=== PATIENT | male | born 1970 | race Caucasian/White ===

== ENCOUNTER 2019-12-02 10:09 | Outpatient (REF) | payer MEDICARE, MEDICAID, SELFPAY ==
[2019-12-02 14:25] LABS: Erythrocyte Sedimentation Rate 8 MM/HR (0-15)
[2019-12-02 14:37] LABS: C Reactive Protein 0.34 mg/dL (< or = 0.50); Uric Acid 6.9 mg/dL (3.4-7.0)
== END 2019-12-02 10:10 | disposition home or self-care (01) ==
LOC: HO.WFDLDS 10:09
PROVIDERS: Visit Provider Hospitalist
DX: M79.605 Pain in left leg (principal); M79.604 Pain in right leg
CPT/HCPCS: 36415; 84550; 85652; 86140

== ENCOUNTER 2020-02-08 15:06 | Outpatient (REF) | payer MEDICARE, MEDICAID, SELFPAY ==
[2020-02-08 16:33] LABS: Estimated Average Glucose 108 mg/dL; Hemoglobin A1c % 5.4 %
[2020-02-08 16:43] LABS: Anion Gap 19 (12-20); Blood Urea Nitrogen 21 mg/dL (9-16); Calcium 9.1 mg/dL (8.4-10.2); Carbon Dioxide 22 mmol/L (22-29); Chloride 105 mmol/L (96-108); Cholesterol 158 mg/dL; Estimated Glomerular Filt Rate 53; Glucose Fasting 84 mg/dL (60-99); HDL Cholesterol 19 mg/dL; LDL Cholesterol Calculated 74 mg/dl; Potassium 4.6 mmol/l (3.3-5.1); Sodium 141 mmol/L (135-145); Triglycerides 329 mg/dL
[2020-02-09 08:38] LABS: LDL Cholesterol Direct 103 mg/dL (<100)
== END 2020-02-08 15:07 | disposition home or self-care (01) ==
LOC: HO.HMGCLDS 15:06
PROVIDERS: PCP Internal Medicine; Visit Provider Nurse Practitioner Gerontology
DX: E11.42 Type 2 diabetes mellitus with diabetic polyneuropathy (principal); E55.9 Vitamin D deficiency, unspecified
CPT/HCPCS: 80048; 80061; 82306; 83036; 83721

== ENCOUNTER → 2020-02-11 10:26 | Outpatient (BNVA) | payer MEDICARE, MEDICAID, SELFPAY | PROVIDERS: PCP Internal Medicine; Visit Provider Internal Medicine Gastroenterology | DX: Z13.89 Encounter for screening for other disorder (principal) | CPT/HCPCS: Q3014 ==

== ENCOUNTER → 2020-03-04 12:56 | Outpatient (BNVA) | payer MEDICARE, MEDICAID, SELFPAY | PROVIDERS: PCP Internal Medicine; Visit Provider Nurse Practitioner Gerontology | DX: E78.1 Pure hyperglyceridemia (principal); E66.09 Other obesity due to excess calories; Z68.31 Body mass index [BMI] 31.0-31.9, adult; E55.9 Vitamin D deficiency, unspecified | CPT/HCPCS: 82947; 99212 ==

== ENCOUNTER 2020-03-17 21:39 | Emergency (ER) | payer MEDICARE, MEDICAID, SELFPAY ==
[2020-03-17] MEDS: 0.9 % Sodium Chloride 1,000 ML 999 ML IVCONT ×2 (21:50→23:49)
[2020-03-17 22:02] VITALS: PULSE 98; RESP 18; TEMP 36.8; O2SAT 96; BMI 34.9
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
--- NOTE | 2020-03-17 22:17 | ECG_ITS ---
Test Reason : MEDICAL Blood Pressure : / mmHG Vent. Rate : 095 BPM Atrial Rate : 095 BPM P-R Int : 164 ms QRS Dur : 088 ms QT Int : 362 ms P-R-T Axes : 060 075 039 degrees QTc Int : 454 ms Normal sinus rhythm Normal ECG When compared with ECG of 28-JUL-2019 17:14, No significant change was found Referred By: Howie Canas Electronically Signed By:DANNA RECIO
--- NOTE | 2020-03-17 22:18 | PC.NURSE ---
PT TO ROOM, MD AT BEDSIDE. BS 105, MD AWARE. PT ARRIVES ALERT, RESPIRATIONS EASY, N/L. SKIN W/D.
[2020-03-17 22:20] LABS: Glucose, Whole Blood 105 mg/dL (60-115)
--- NOTE | 2020-03-17 22:44 | PC.NURSE ---
HL PLACED TO LAC, LABS DRAWN TO LAB. PT AWAITING FOR EKG. PT REMAIN ALERT AND AWAKE, RESPIRATIONS EASY, N/L. SKIN W/D.
[2020-03-17 23:02] LABS: Anion Gap 14 (12-20); Blood Urea Nitrogen 19 mg/dL (9-16); Calcium 8.7 mg/dL (8.4-10.2); Carbon Dioxide 22 mmol/L (22-29); Chloride 104 mmol/L (96-108); Creatinine Clr Calc Pharmacy 126.3; Estimated Glomerular Filt Rate > 60; Glucose Random 102 mg/dL (60-115); Potassium 4.4 mmol/l (3.3-5.1); Sodium 136 mmol/L (135-145)
== END 2020-03-18 00:03 | disposition home or self-care (01) ==
PROVIDERS: Emergency Provider Emergency Medicine; PCP Internal Medicine
DX: E11.65 Type 2 diabetes mellitus with hyperglycemia (principal); R42 Dizziness and giddiness; E86.0 Dehydration; F17.210 Nicotine dependence, cigarettes, uncomplicated; Z71.6 Tobacco abuse counseling; Z79.899 Other long term (current) drug therapy; Z79.84 Long term (current) use of oral hypoglycemic drugs
CPT/HCPCS: 36415; 80048; 82947; 93005; 96360; 99283; 99284

== ENCOUNTER → 2020-09-02 13:48 | Outpatient (BNVA) | payer MEDICARE, MEDICAID, SELFPAY | PROVIDERS: PCP Family Medicine; Visit Provider Nurse Practitioner Gerontology | DX: E11.42 Type 2 diabetes mellitus with diabetic polyneuropathy (principal); E78.1 Pure hyperglyceridemia; E55.9 Vitamin D deficiency, unspecified; E66.09 Other obesity due to excess calories; Z79.4 Long term (current) use of insulin; Z68.31 Body mass index [BMI] 31.0-31.9, adult | CPT/HCPCS: Q3014 ==

== ENCOUNTER 2021-01-23 12:50 | Outpatient (REF) | payer MEDICARE, MEDICAID, SELFPAY ==
--- NOTE | ~2021-01-23 | XR_ITS ---
EXAMINATION: XR CHEST CLINICAL INFORMATION: Cough COMPARISON: Previous chest x-ray most recent May 2019 TECHNIQUE: 2 views of the chest were obtained. FINDINGS: No significant abnormality is noted involving the heart, lungs, mediastinum, bony thorax or soft tissues. XR/XR chest 2V IMPRESSION: Unremarkable examination.
[2021-01-23 14:19] LABS: Alanine Aminotransferase 22 U/L (0-40); Albumin Level 4.2 g/dL (3.5-5.0); Alkaline Phosphatase 57 U/L (39-117); Anion Gap 14 (12-20); Aspartate Amino Transferase 17 U/L (5-37); Bilirubin Total 0.2 mg/dL (0.0-1.0); Blood Urea Nitrogen 20 mg/dL (9-16); Calcium 8.9 mg/dL (8.4-10.2); Carbon Dioxide 19 mmol/L (22-29); Chloride 110 mmol/L (96-108); Cholesterol 181 mg/dL; Estimated Glomerular Filt Rate > 60; Glucose Fasting 104 mg/dL (60-99); HDL Cholesterol 20 mg/dL; Potassium 4.4 mmol/L (3.3-5.1); Sodium 139 mmol/L (135-145); Triglycerides 614 mg/dL
[2021-01-23 14:36] LABS: Prostate Specific Antigen Scr 0.49 ng/mL (<0.05-4.0)
[2021-01-23 14:49] LABS: Creatinine Urine 121.72 mg/dL; Microalbumin Urine < 5.0 mg/L
== END 2021-01-23 12:51 | disposition home or self-care (01) ==
LOC: HO.HMGCLDS 12:50
PROVIDERS: PCP Family Medicine; Visit Provider Family Medicine
DX: Z00.00 Encounter for general adult medical examination without abnormal findings (principal); Z12.5 Encounter for screening for malignant neoplasm of prostate; E11.42 Type 2 diabetes mellitus with diabetic polyneuropathy; R05.9 Cough, unspecified; I10 Essential (primary) hypertension; Z79.4 Long term (current) use of insulin
CPT/HCPCS: 36415; 71046; 80053; 80061; 82043; 84153; 84443

== ENCOUNTER 2021-02-22 11:28 | Emergency (ER) | payer MEDICARE, MEDICAID, SELFPAY ==
--- NOTE | ~2021-02-22 | CT_ITS ---
EXAMINATION: CT HEAD WITHOUT CONTRAST CLINICAL INFORMATION: Headache for 2 days. COMPARISON: None TECHNIQUE: Contiguous axial imaging was performed from the skull base to vertex without intravenous administration of contrast. Coronal and sagittal reformatted images are performed at CT scanner This CT examination was performed using dose optimization techniques as appropriate, variously including the following: *Automated exposure control *Adjustment of mA and/or kV according to patient size (this includes techniques or standardized protocols for targeted exams where dose is matched to indication/reason for exam; i.e. extremities or head) *Use of iterative reconstruction technique DLP: 897 mGy-cm FINDINGS: There is no evidence of acute intracranial hemorrhage or territorial infarction. No abnormal mass effect or midline shift is seen. Karimi to white matter differentiation is well preserved. No extra-axial fluid collections are identified. The ventricles are normal in size. There is no abnormal attenuation within the brain parenchyma. The osseous structures and soft tissues are normal. There is complete opacification of the frontal sinuses. Significant opacification of the ethmoid sinus. Thin rim of mucosal thickening in the maxillary and sphenoid sinuses. The mastoid air cells and middle ear cavities are normally aerated. CT/CT head/brain wo con IMPRESSION: 1. No acute intracranial pathology.. 2. Sinus disease.
[2021-02-22 14:12] VITALS: BP 122/81; PULSE 88; RESP 18; TEMP 36.4; O2SAT 97; BMI 35.2
--- NOTE | 2021-02-22 18:43 | PC.NURSE ---
Pt ambulated to triage with a steady gait, FOOTE remains, +PERRLA, Neuros grossly intact at this time. Checked L ear, no bleeding or dried blood noted at this time. Awaiting MD assessment, will continue to monitor in the WR.
[2021-02-22 18:47] VITALS: BP 136/79; PULSE 90; RESP 22; TEMP 36.6; O2SAT 96
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
[2021-02-22] MEDS: 0.9 % Sodium Chloride 1,000 ML 999 ML IV (21:21)
[2021-02-22] MEDS: diphenhydrAMINE HCL 50 MG/ML VIAL IVPUSH (21:23)
[2021-02-22] MEDS: Metoclopramide HCl 10 MG/2 ML VIAL IVPUSH (21:23)
[2021-02-22] MEDS: Ketorolac Tromethamine 30 MG/ML VIAL 15 MG IVPUSH (21:23)
[2021-02-22 21:24] LABS: MANUAL DIFF FLAG NO
[2021-02-22 21:27] LABS: Basophils Absolute Auto 0.1 X10*3/uL (0.0-0.2); Eosinophils Absolute Auto 0.3 X10*3/uL (0.0-0.4); Eosinophils Percent Auto 3.5 % (0-4); Hematocrit 41.3 % (42.0-52.0); Hemoglobin 14.1 g/dl (14.0-18.0); Imm Gran Abs Auto 0.02 X10*3/uL (0.00-0.03); Imm Gran Pct Auto 0.2 % (0.0-0.4); Lymphocytes Absolute Auto 2.2 X10*3/uL (1.2-4.9); Mean Corpuscular HGB Conc 34.1 g/dl (31.0-36.0); Mean Corpuscular Hemoglobin 29.1 pg (27.0-33.0); Mean Corpuscular Volume 85.3 fL (80.0-98.0); Mean Platelet Volume 11.2 fL (9.4-12.4); Monocytes Absolute Auto 0.8 X10*3/uL (0.1-1.2); Monocytes Percent Auto 9.8 % (2-11); Neutrophils Percent Auto 59.5 % (45-73); Platelet Count 253 X10*3/uL (160-400); Red Blood Count 4.84 X10*6/uL (4.60-5.80); Red Cell Distribution Width 13.2 % (11.0-16.0); White Blood Count 8.4 X10*3/uL (4.8-10.8)
[2021-02-22 21:32] LABS: INTERNATIONAL NORM RATIO 1.1 (0.9-1.1); Prothrombin Time 12.2 SEC (9.9-13.0)
[2021-02-22 21:35] LABS: Partial Thromboplastin Time 31.9 SEC (24.1-38.0)
[2021-02-22 21:40] LABS: Alanine Aminotransferase 20 U/L (0-40); Albumin Level 4.3 g/dL (3.5-5.0); Alkaline Phosphatase 55 U/L (39-117); Anion Gap 10 (12-20); Aspartate Amino Transferase 15 U/L (5-37); Bilirubin Total 0.3 mg/dL (0.0-1.0); Blood Urea Nitrogen 18 mg/dL (9-16); Calcium 9.2 mg/dL (8.4-10.2); Carbon Dioxide 26 mmol/L (22-29); Chloride 108 mmol/L (96-108); Creatinine Clr Calc Pharmacy 112.7; Estimated Glomerular Filt Rate > 60; Glucose Random 132 mg/dL (60-115); Sodium 140 mmol/L (135-145)
[2021-02-22 21:42] LABS: COVID-19 Test Negative (Negative)
[2021-02-22 22:45] VITALS: BP 115/75; PULSE 82; RESP 16; O2SAT 97
== END 2021-02-22 23:19 | disposition home or self-care (01) ==
PROVIDERS: Emergency Provider Emergency Medicine Emergency Medical Services; PCP Family Medicine
DX: B34.9 Viral infection, unspecified (principal); R51.9 Headache, unspecified; Z20.822 Contact with and (suspected) exposure to COVID-19
CPT/HCPCS: 36415; 70450; 80053; 85025; 85610; 85730; 87635; 96361; 96374; 96375; 99284; J1200; J1885; J2765

== ENCOUNTER 2021-02-27 13:39 | Outpatient (REF) | payer MEDICARE, MEDICAID, SELFPAY ==
[2021-02-27 17:07] LABS: Cholesterol 183 mg/dL; HDL Cholesterol 25 mg/dL; Triglycerides 584 mg/dL
[2021-02-27 18:18] LABS: Vitamin B12 376 pg/mL (200-900)
[2021-02-28 03:35] LABS: Estimated Average Glucose 131 mg/dL; Hemoglobin A1c % 6.2 %
[2021-02-28 04:52] LABS: LDL Cholesterol Direct 86 mg/dL (<100)
[2021-02-28 05:30] LABS: Lyme Abs Screen <0.90 index
[2021-03-01 04:10] LABS: Syphilis Screen Nonreactive (Nonreactive)
== END 2021-02-27 13:40 | disposition home or self-care (01) ==
LOC: HO.HMGCLDS 13:39
PROVIDERS: Absent Provider Psychiatry & Neurology Neurology; PCP Family Medicine; Visit Provider Family Medicine
DX: Z00.00 Encounter for general adult medical examination without abnormal findings (principal); R73.01 Impaired fasting glucose; E78.1 Pure hyperglyceridemia; F09 Unspecified mental disorder due to known physiological condition; Z11.3 Encounter for screening for infections with a predominantly sexual mode of transmission
CPT/HCPCS: 36415; 80061; 82607; 83036; 83721; 86617; 86618; 86780

== ENCOUNTER 2021-07-05 14:07 | Outpatient (REF) | payer MEDICARE, MEDICAID, SELFPAY ==
[2021-07-05 14:51] LABS: Influenza A PCR NEGATIVE (Negative); Influenza B PCR NEGATIVE (Negative); Resp Syncy Virus RNA Qual PCR NEGATIVE (Negative); SARS COV2 PCR INHOUSE POSITIVE (Negative)
== END 2021-07-05 14:08 | disposition home or self-care (01) ==
LOC: HO.LNP 14:07
PROVIDERS: Visit Provider Emergency Medicine
DX: Z20.822 Contact with and (suspected) exposure to COVID-19 (principal); R68.89 Other general symptoms and signs
CPT/HCPCS: 0241U

== ENCOUNTER 2021-09-22 08:43 | Outpatient (REF) | payer MEDICARE, MEDICAID, SELFPAY ==
[2021-09-22 11:08] LABS: MANUAL DIFF FLAG NO
[2021-09-22 11:17] LABS: Basophils Absolute Auto 0.1 X10*3/uL (0.0-0.2); Eosinophils Absolute Auto 0.2 X10*3/uL (0.0-0.4); Eosinophils Percent Auto 2.6 % (0-4); Hematocrit 39.9 % (42.0-52.0); Hemoglobin 13.4 g/dl (14.0-18.0); Imm Gran Abs Auto 0.02 X10*3/uL (0.00-0.03); Imm Gran Pct Auto 0.2 % (0.0-0.4); Lymphocytes Absolute Auto 1.9 X10*3/uL (1.2-4.9); Lymphocytes Percent Auto 21.4 % (20-40); Mean Corpuscular HGB Conc 33.6 g/dl (31.0-36.0); Mean Corpuscular Hemoglobin 28.6 pg (27.0-33.0); Mean Corpuscular Volume 85.1 fL (80.0-98.0); Mean Platelet Volume 11.8 fL (9.4-12.4); Monocytes Absolute Auto 0.6 X10*3/uL (0.1-1.2); Monocytes Percent Auto 6.2 % (2-11); Neutrophils Absolute Auto 6.2 x10*3/uL (2.0-8.3); Neutrophils Percent Auto 68.6 % (45-73); Platelet Count 254 X10*3/uL (160-400); Red Blood Count 4.69 X10*6/uL (4.60-5.80); Red Cell Distribution Width 13.8 % (11.0-16.0)
[2021-09-22 11:35] LABS: Estimated Average Glucose 117 mg/dL; Hemoglobin A1c % 5.7 %
[2021-09-22 11:47] LABS: Appearance Urine CLEAR; Color Urine YELLOW; Glucose Urine UA NEG (NEG); Leukocyte Esterase Urine NEG (NEG); Nitrite Urine NEG (NEG); Specific Gravity - Urine 1.015 (1.005-1.025); Urine Blood NEG (NEG); Urine Ketones NEG (NEG); Urine Protein NEG (NEG-TRACE)
[2021-09-22 12:03] LABS: Prostate Specific Antigen Scr 0.41 ng/mL (<0.05-4.0); TSH reflex Free T4 0.92 uIU/mL (0.32-4.0)
[2021-09-22 12:11] LABS: Alanine Aminotransferase 21 U/L (0-40); Albumin Level 4.5 g/dL (3.5-5.0); Alkaline Phosphatase 64 U/L (39-117); Anion Gap 16 (12-20); Aspartate Amino Transferase 20 U/L (5-37); Bilirubin Total 0.2 mg/dL (0.0-1.0); Blood Urea Nitrogen 18 mg/dL (9-16); Calcium 8.8 mg/dL (8.4-10.2); Carbon Dioxide 24 mmol/L (22-29); Chloride 105 mmol/L (96-108); Cholesterol 149 mg/dL; Estimated Glomerular Filt Rate > 60; Glucose Fasting 103 mg/dL (60-99); HDL Cholesterol 22 mg/dL; LDL Cholesterol Calculated 75 mg/dl; Potassium 4.1 mmol/L (3.3-5.1); Sodium 141 mmol/L (135-145); Total Protein 7.1 g/dL (6.5-8.0); Triglycerides 260 mg/dL
[2021-09-22 12:29] LABS: Creatinine Urine 74.59 mg/dL; Microalbum/Creatinine Ratio Ur 6.7 ug/mg cr
[2021-09-24 05:42] LABS: LDL Cholesterol Direct 84 mg/dL (<100)
== END 2021-09-22 08:44 | disposition home or self-care (01) ==
LOC: HO.HMGCLDS 08:43
PROVIDERS: Visit Provider Family Medicine
DX: Z00.00 Encounter for general adult medical examination without abnormal findings (principal); Z12.5 Encounter for screening for malignant neoplasm of prostate; I10 Essential (primary) hypertension; R73.01 Impaired fasting glucose; E78.1 Pure hyperglyceridemia
CPT/HCPCS: 36415; 80053; 80061; 81003; 82043; 83036; 83721; 84153; 84443; 85025

== ENCOUNTER 2021-11-09 11:01 | Outpatient (REF) | payer MEDICARE, MEDICAID, SELFPAY ==
[2021-11-09 11:30] LABS: MANUAL DIFF FLAG NO
[2021-11-09 11:58] LABS: Basophils Absolute Auto 0.1 X10*3/uL (0.0-0.2); Basophils Percent Auto 0.6 % (0-2); Eosinophils Absolute Auto 0.2 X10*3/uL (0.0-0.4); Eosinophils Percent Auto 1.6 % (0-4); Hematocrit 43.6 % (42.0-52.0); Hemoglobin 14.7 g/dl (14.0-18.0); Imm Gran Abs Auto 0.05 X10*3/uL (0.00-0.03); Imm Gran Pct Auto 0.4 % (0.0-0.4); Lymphocytes Absolute Auto 2.3 X10*3/uL (1.2-4.9); Lymphocytes Percent Auto 20.8 % (20-40); Mean Corpuscular HGB Conc 33.7 g/dl (31.0-36.0); Mean Corpuscular Hemoglobin 28.5 pg (27.0-33.0); Mean Corpuscular Volume 84.5 fL (80.0-98.0); Mean Platelet Volume 11.3 fL (9.4-12.4); Monocytes Absolute Auto 0.9 X10*3/uL (0.1-1.2); Monocytes Percent Auto 7.8 % (2-11); Neutrophils Absolute Auto 7.7 x10*3/uL (2.0-8.3); Neutrophils Percent Auto 68.8 % (45-73); Platelet Count 275 X10*3/uL (160-400); Red Blood Count 5.16 X10*6/uL (4.60-5.80); Red Cell Distribution Width 13.6 % (11.0-16.0); White Blood Count 11.1 X10*3/uL (4.8-10.8)
[2021-11-09 12:23] LABS: Iron 74 mcg/dL (45-160); Percent Iron Saturation 22 % (15-50); Total Iron Binding Capacity 333 mcg/dL (228-428); Unsaturated Iron Binding 259 ug/dL
[2021-11-09 12:45] LABS: Ferritin 39 ng/mL (20-250); Vitamin D 25-OH Total 20.6 ng/mL (>30)
[2021-11-09 13:11] LABS: Appearance Urine Clear; Color Urine Yellow; Glucose Urine UA Negative (Negative); Leukocyte Esterase Urine Negative (Negative); Nitrite Urine Negative (Negative); PH 5.5 (5.0-9.0); Urine Blood Negative (Negative); Urine Ketones Negative (Negative); Urine Protein Negative (Neg-Trace)
[2021-11-13 22:47] LABS: Transglutaminase Ab IgG 53.2 U/mL; Transglutaminase IgA >250.0 U/mL
== END 2021-11-09 11:02 | disposition home or self-care (01) ==
LOC: HO.LAB 11:01
PROVIDERS: PCP Family Medicine; Visit Provider Internal Medicine Gastroenterology
DX: K90.0 Celiac disease (principal); D64.9 Anemia, unspecified; R10.9 Unspecified abdominal pain; K21.9 Gastro-esophageal reflux disease without esophagitis; E55.9 Vitamin D deficiency, unspecified; Z86.010 Personal history of colon polyps; Z79.899 Other long term (current) drug therapy; Z79.4 Long term (current) use of insulin
CPT/HCPCS: 36415; 81003; 82306; 82728; 83540; 84590; 85025; 86364; 99212

== ENCOUNTER 2021-11-14 08:21 | Outpatient (REF) | payer MEDICARE, MEDICAID, SELFPAY ==
[2021-11-14 08:43] LABS: MANUAL DIFF FLAG NO
[2021-11-14 09:17] LABS: Basophils Absolute Auto 0.1 X10*3/uL (0.0-0.2); Basophils Percent Auto 0.9 % (0-2); Eosinophils Absolute Auto 0.2 X10*3/uL (0.0-0.4); Eosinophils Percent Auto 2.4 % (0-4); Hematocrit 40.5 % (42.0-52.0); Hemoglobin 13.6 g/dl (14.0-18.0); Imm Gran Abs Auto 0.03 X10*3/uL (0.00-0.03); Imm Gran Pct Auto 0.3 % (0.0-0.4); Lymphocytes Absolute Auto 2.1 X10*3/uL (1.2-4.9); Lymphocytes Percent Auto 22.1 % (20-40); Mean Corpuscular HGB Conc 33.6 g/dl (31.0-36.0); Mean Corpuscular Hemoglobin 28.8 pg (27.0-33.0); Mean Corpuscular Volume 85.6 fL (80.0-98.0); Mean Platelet Volume 11.1 fL (9.4-12.4); Monocytes Absolute Auto 0.7 X10*3/uL (0.1-1.2); Monocytes Percent Auto 7.3 % (2-11); Neutrophils Absolute Auto 6.4 x10*3/uL (2.0-8.3); Platelet Count 262 X10*3/uL (160-400); Red Blood Count 4.73 X10*6/uL (4.60-5.80); Red Cell Distribution Width 13.6 % (11.0-16.0); White Blood Count 9.6 X10*3/uL (4.8-10.8)
[2021-11-14 09:46] LABS: Alanine Aminotransferase 27 U/L (0-40); Albumin Level 4.3 g/dL (3.5-5.0); Alkaline Phosphatase 50 U/L (39-117); Anion Gap 14 (12-20); Aspartate Amino Transferase 19 U/L (5-37); Bilirubin Total 0.3 mg/dL (0.0-1.0); Blood Urea Nitrogen 17 mg/dL (9-16); Calcium 8.9 mg/dL (8.4-10.2); Carbon Dioxide 22 mmol/L (22-29); Chloride 108 mmol/L (96-108); Estimated Glomerular Filt Rate > 60; Glucose Random 109 mg/dL (60-115); Potassium 4.1 mmol/L (3.3-5.1); Sodium 140 mmol/L (135-145); Total Protein 6.9 g/dL (6.5-8.0)
[2021-11-17 19:06] LABS: Vitamin A 65 mcg/dL (38-98)
== END 2021-11-14 08:22 | disposition home or self-care (01) ==
LOC: HO.LAB 08:21
PROVIDERS: Internal Medicine Gastroenterology; PCP Family Medicine; Visit Provider Family Medicine
DX: Z00.00 Encounter for general adult medical examination without abnormal findings (principal); E11.42 Type 2 diabetes mellitus with diabetic polyneuropathy; D64.9 Anemia, unspecified; K90.0 Celiac disease; Z79.4 Long term (current) use of insulin
CPT/HCPCS: 36415; 80053; 84590; 85025

== ENCOUNTER 2022-06-26 09:05 | Outpatient (REF) | payer MEDICARE, MEDICAID, SELFPAY ==
[2022-06-26 11:38] LABS: Hematocrit 44.8 % (42.0-52.0); Hemoglobin 14.8 g/dl (14.0-18.0); Mean Corpuscular Hemoglobin 28.1 pg (27.0-33.0); Mean Platelet Volume 11.3 fL (9.4-12.4); Platelet Count 302 X10*3/uL (160-400); Red Blood Count 5.27 X10*6/uL (4.60-5.80); Red Cell Distribution Width 14.2 % (11.0-16.0); White Blood Count 11.6 X10*3/uL (4.8-10.8)
[2022-06-26 11:46] LABS: Estimated Average Glucose 128 mg/dL; Hemoglobin A1c % 6.1 %
[2022-06-26 12:27] LABS: Alanine Aminotransferase 40 U/L (0-40); Albumin Level 3.9 g/dL (3.5-5.0); Alkaline Phosphatase 62 U/L (39-117); Anion Gap 11 (12-20); Aspartate Amino Transferase 26 U/L (5-37); Bilirubin Direct 0.1 mg/dL (0.0-0.5); Bilirubin Total 0.4 mg/dL (0.0-1.0); Blood Urea Nitrogen 15 mg/dL (9-16); Calcium 8.3 mg/dL (8.4-10.2); Carbon Dioxide 22 mmol/L (22-29); Chloride 113 mmol/L (96-108); Estimated Glomerular Filt Rate > 60; Glucose Random 131 mg/dL (60-115); Potassium 3.9 mmol/L (3.3-5.1); Sodium 142 mmol/L (135-145); Total Protein 6.1 g/dL (6.5-8.0)
== END 2022-06-26 09:06 | disposition home or self-care (01) ==
LOC: HO.HMGCLDS 09:05
PROVIDERS: PCP Family Medicine; Visit Provider Internal Medicine
DX: R19.7 Diarrhea, unspecified (principal); E08.9 Diabetes mellitus due to underlying condition without complications
CPT/HCPCS: 36415; 80048; 80076; 83036; 85027

== ENCOUNTER 2022-08-10 09:54 | Outpatient (REF) | payer MEDICARE, MEDICAID, SELFPAY ==
[2022-08-10 11:34] LABS: Hematocrit 41.2 % (42.0-52.0); Hemoglobin 13.9 g/dl (14.0-18.0); Mean Corpuscular HGB Conc 33.7 g/dl (31.0-36.0); Mean Corpuscular Hemoglobin 28.8 pg (27.0-33.0); Mean Corpuscular Volume 85.3 fL (80.0-98.0); Platelet Count 280 X10*3/uL (160-400); Red Blood Count 4.83 X10*6/uL (4.60-5.80); Red Cell Distribution Width 15.4 % (11.0-16.0); White Blood Count 11.2 X10*3/uL (4.8-10.8)
[2022-08-10 12:07] LABS: Erythrocyte Sedimentation Rate 4 MM/HR (0-15)
[2022-08-10 12:13] LABS: Alanine Aminotransferase 28 U/L (0-40); Albumin Level 3.8 g/dL (3.5-5.0); Alkaline Phosphatase 80 U/L (39-117); Anion Gap 14 (12-20); Aspartate Amino Transferase 23 U/L (5-37); Bilirubin Direct 0.1 mg/dL (0.0-0.5); Bilirubin Total 0.3 mg/dL (0.0-1.0); Blood Urea Nitrogen 13 mg/dL (9-16); Calcium 8.4 mg/dL (8.4-10.2); Carbon Dioxide 19 mmol/L (22-29); Chloride 111 mmol/L (96-108); Estimated Glomerular Filt Rate > 60; Glucose Random 111 mg/dL (60-115); Potassium 3.5 mmol/L (3.3-5.1); Sodium 140 mmol/L (135-145); Total Protein 6.3 g/dL (6.5-8.0)
== END 2022-08-10 09:55 | disposition home or self-care (01) ==
LOC: HO.HMGCLDS 09:54
PROVIDERS: PCP Family Medicine; Visit Provider Internal Medicine
DX: R19.7 Diarrhea, unspecified (principal)
CPT/HCPCS: 36415; 80048; 80076; 85027; 85652

== ENCOUNTER 2022-08-15 | Outpatient (REF) | payer OTHER, MEDICARE, SELFPAY ==
[2022-08-16 10:57] LABS: CDiff Gene PCR NEGATIVE (Negative)
[2022-08-16 12:45] LABS: Campylobacter Not Detected (Not Detect.); E. coli EAEC Not Detected (Not Detect.); E. coli EPEC Not Detected (Not Detect.); Plesiomonas shigelloides Not Detected (Not Detect.); Salmonella Not Detected (Not Detect.); Vibrio Not Detected (Not Detect.); Vibrio Cholerae Not Detected (Not Detect.); Yersinia enterocolitica Not Detected (Not Detect.)
[2022-08-16 12:46] LABS: Adenovirus F 40/41 Not Detected (Not Detect.); Astrovirus Not Detected (Not Detect.); Cryptosporidium Not Detected (Not Detect.); Cyclospora cayetanensis Not Detected (Not Detect.); E. coli ETEC Not Detected (Not Detect.); E. coli STEC Not Detected (Not Detect.); Entamoeba histolytica Not Detected (Not Detect.); Giardia lamblia Not Detected (Not Detect.); Norovirus GI/GII Not Detected (Not Detect.); Rotavirus A Not Detected (Not Detect.); Sapovirus Not Detected (Not Detect.); Shigella sp./EIEC Not Detected (Not Detect.)
== END 2022-08-15 00:01 | disposition home or self-care (01) ==
LOC: HO.LNP
PROVIDERS: Visit Provider Family Medicine
DX: R19.7 Diarrhea, unspecified (principal)
CPT/HCPCS: 87493; 87507

== ENCOUNTER 2022-09-21 08:44 | Outpatient (AMB) | payer MEDICARE, MEDICAID, SELFPAY ==
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
[2022-09-21 09:17] VITALS: BP 112/64; PULSE 96; RESP 14; TEMP 36.6; O2SAT 96; BMI 34.3
== END 2022-09-21 09:59 | disposition home or self-care (01) ==
PROVIDERS: PCP Family Medicine; Visit Provider Family Medicine
DX: R19.7 Diarrhea, unspecified (principal); F41.8 Other specified anxiety disorders; K90.0 Celiac disease
CPT/HCPCS: 99214

== ENCOUNTER → 2022-10-11 12:59 | Outpatient (BNVA) | payer OTHER, MEDICARE, MEDICAID, SELFPAY | PROVIDERS: PCP Family Medicine; Visit Provider Internal Medicine Gastroenterology | DX: K90.0 Celiac disease (principal); R19.7 Diarrhea, unspecified; K21.9 Gastro-esophageal reflux disease without esophagitis; E55.9 Vitamin D deficiency, unspecified; Z86.010 Personal history of colon polyps | CPT/HCPCS: 99212 ==

== ENCOUNTER 2022-10-11 13:02 | Outpatient (AMB) | payer OTHER, MEDICAID, SELFPAY ==
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
[2022-10-11 13:03] VITALS: BP 130/80; PULSE 95; BMI 33.7
== END 2022-10-11 13:28 | disposition home or self-care (01) ==
PROVIDERS: PCP Family Medicine; Visit Provider Internal Medicine Gastroenterology
DX: R19.7 Diarrhea, unspecified (principal); K21.9 Gastro-esophageal reflux disease without esophagitis; Z86.010 Personal history of colon polyps; E55.9 Vitamin D deficiency, unspecified; K90.0 Celiac disease
CPT/HCPCS: 99214

== ENCOUNTER 2023-01-03 14:26 | Outpatient (AMB) | payer OTHER, MEDICARE, MEDICAID, SELFPAY ==
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
[2023-01-03 14:35] VITALS: BP 122/80; PULSE 99; TEMP 36.8; O2SAT 95; BMI 35.6
== END 2023-01-03 15:08 | disposition home or self-care (01) ==
PROVIDERS: PCP Family Medicine; Visit Provider Nurse Practitioner Family
DX: M10.9 Gout, unspecified (principal); L02.811 Cutaneous abscess of head [any part, except face]
CPT/HCPCS: 99213

== ENCOUNTER 2023-02-01 09:08 | Outpatient (AMB) | payer OTHER, MEDICARE, MEDICAID, SELFPAY ==
[2023-02-01 10:29] VITALS: BP 132/80; PULSE 103; TEMP 36.6; O2SAT 94; BMI 35.6
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
== END 2023-02-01 11:11 | disposition home or self-care (01) ==
PROVIDERS: PCP Family Medicine; Visit Provider Physician Assistant Medical
DX: R06.02 Shortness of breath (principal)
CPT/HCPCS: 99213

== ENCOUNTER 2023-02-01 11:08 | Emergency (ER) | payer OTHER, MEDICARE, MEDICAID, SELFPAY ==
--- NOTE | ~2023-02-01 | XR_ITS ---
EXAMINATION: XR CHEST CLINICAL INFORMATION: Pain COMPARISON: 01/23/2021 TECHNIQUE: 2 views of the chest were obtained. FINDINGS: No significant abnormality is noted involving the heart, lungs, mediastinum, bony thorax or soft tissues. XR/XR chest 2V IMPRESSION: Unremarkable examination with no interval change.
[2023-02-01 11:31] VITALS: BP 129/79; PULSE 86; RESP 16; TEMP 37; O2SAT 97; BMI 36.4
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
--- NOTE | 2023-02-01 11:33 | ECG_ITS ---
Test Reason : pain Blood Pressure : / mmHG Vent. Rate : 093 BPM Atrial Rate : 093 BPM P-R Int : 138 ms QRS Dur : 098 ms QT Int : 366 ms P-R-T Axes : 059 078 047 degrees QTc Int : 455 ms Normal sinus rhythm Normal ECG When compared with ECG of 17-MAR-2020 22:57, No significant change was found Referred By: Felix Cole Electronically Signed By:DANNA RECIO
[2023-02-01 12:08] LABS: MANUAL DIFF FLAG NO
[2023-02-01 12:10] LABS: Basophils Percent Auto 0.5 % (0-2); Eosinophils Absolute Auto 0.2 X10*3/uL (0.0-0.4); Eosinophils Percent Auto 2.5 % (0-4); Hematocrit 41.6 % (42.0-52.0); Hemoglobin 14.3 g/dl (14.0-18.0); Imm Gran Abs Auto 0.05 X10*3/uL (0.00-0.03); Imm Gran Pct Auto 0.6 % (0.0-0.4); Lymphocytes Absolute Auto 1.2 X10*3/uL (1.2-4.9); Lymphocytes Percent Auto 14.2 % (20-40); Mean Corpuscular HGB Conc 34.4 g/dl (31.0-36.0); Mean Corpuscular Hemoglobin 29.8 pg (27.0-33.0); Mean Corpuscular Volume 86.7 fL (80.0-98.0); Mean Platelet Volume 11.3 fL (9.4-12.4); Monocytes Absolute Auto 0.9 X10*3/uL (0.1-1.2); Monocytes Percent Auto 11.4 % (2-11); Neutrophils Absolute Auto 5.7 x10*3/uL (2.0-8.3); Neutrophils Percent Auto 70.8 % (45-73); Platelet Count 219 X10*3/uL (160-400); Red Cell Distribution Width 13.8 % (11.0-16.0); White Blood Count 8.1 X10*3/uL (4.8-10.8)
[2023-02-01 12:18] LABS: INTERNATIONAL NORM RATIO 0.9 (0.9-1.1); Prothrombin Time 11.5 SEC (11.1-13.3)
[2023-02-01 12:20] LABS: Partial Thromboplastin Time 27.5 SEC (26.0-36.4)
[2023-02-01 12:25] LABS: Alanine Aminotransferase 58 U/L (0-40); Albumin Level 4.2 g/dL (3.5-5.0); Alkaline Phosphatase 60 U/L (39-117); Anion Gap 13 (12-20); Aspartate Amino Transferase 31 U/L (5-37); Bilirubin Total 0.3 mg/dL (0.0-1.0); Blood Urea Nitrogen 17 mg/dL (9-16); Calcium 8.6 mg/dL (8.4-10.2); Carbon Dioxide 26 mmol/L (22-29); Chloride 104 mmol/L (96-108); Creatinine Clr Calc Pharmacy 113.1; Estimated Glomerular Filt Rate > 60; Glucose Random 164 mg/dL (60-115); Lipase 26 U/L (8-78); Potassium 4.2 mmol/L (3.3-5.1); Sodium 139 mmol/L (135-145); Total Protein 7.2 g/dL (6.5-8.0)
[2023-02-01 12:31] LABS: B Type Natriuretic Peptide < 10 pg/mL (<100)
[2023-02-01 12:56] LABS: Troponin-I High Sensitivity < 2.7 ng/L (<3.5-35.0)
[2023-02-01 13:00] LABS: Influenza A PCR NEGATIVE (Negative); Influenza B PCR NEGATIVE (Negative); Resp Syncy Virus RNA Qual PCR NEGATIVE (Negative); SARS COV2 PCR INHOUSE NEGATIVE (Negative)
[2023-02-01 16:10] LABS: D Dimer High Sensitivity < 150 NG/ML
== END 2023-02-01 16:30 | disposition home or self-care (01) ==
PROVIDERS: Nurse Practitioner Family; Physician Assistant; Emergency Provider Emergency Medicine; PCP Family Medicine
DX: J40 Bronchitis, not specified as acute or chronic (principal); R05.9 Cough, unspecified; R07.89 Other chest pain; M79.10 Myalgia, unspecified site; R06.02 Shortness of breath; Z20.822 Contact with and (suspected) exposure to COVID-19; Z20.828 Contact with and (suspected) exposure to other viral communicable diseases; Z79.899 Other long term (current) drug therapy
CPT/HCPCS: 0241U; 36415; 71046; 80053; 83690; 83880; 84484; 85025; 85379; 85610; 85730; 93005; 99284

== ENCOUNTER → 2023-02-01 11:33 | Outpatient (BNV) | payer OTHER, MEDICARE, MEDICAID, SELFPAY | PROVIDERS: Emergency Provider Emergency Medicine; PCP Family Medicine; Visit Provider Internal Medicine | DX: R07.9 Chest pain, unspecified (principal) | CPT/HCPCS: 93010 ==

== ENCOUNTER 2023-06-18 14:19 | Outpatient (AMB) | payer BC, OTHER, MEDICAID, SELFPAY ==
[2023-06-18 14:26] VITALS: BP 120/74; PULSE 101; TEMP 36.4; O2SAT 96; BMI 35.6
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
== END 2023-06-18 16:13 | disposition home or self-care (01) ==
PROVIDERS: PCP Family Medicine; Visit Provider Physician Assistant Medical
DX: R68.89 Other general symptoms and signs (principal)
CPT/HCPCS: 99213

== ENCOUNTER 2023-06-18 14:55 | Outpatient (REF) | payer BC, SELFPAY ==
--- NOTE | ~2023-06-18 | US_ITS ---
EXAMINATION: US VENOUS ULTRASOUND WITH DOPPLER LOWER EXTREMITY, RIGHT CLINICAL INFORMATION: Right lower extremity pain COMPARISON: None available. TECHNIQUE: Ultrasound of the deep veins is performed from the hip to the calf with compression sonography and color and pulse Doppler assessment. Spectral analysis with color-flow imaging is performed. FINDINGS: There is normal venous compression and respiratory variation and augmented flow. The visualized common femoral vein, superficial femoral vein, profunda femoral vein, popliteal vein, and the trifurcation region shows no evidence of deep venous thrombosis. There is no significant popliteal fossa cyst. If the patient's symptoms persist, followup ultrasound in 5 days 7 days might be of value to exclude proximal propagation from a non-visualized calf vein. US/US venous duplex LE RT IMPRESSION: No DVT demonstrated in the right lower extremity.
[2023-06-19 13:16] LABS: Influenza A PCR NEGATIVE (Negative); Influenza B PCR NEGATIVE (Negative); Resp Syncy Virus RNA Qual PCR NEGATIVE (Negative); SARS COV2 PCR INHOUSE NEGATIVE (Negative)
== END 2023-06-18 14:56 | disposition home or self-care (01) ==
LOC: HO.HMGCX 14:55
PROVIDERS: PCP Family Medicine; Visit Provider Physician Assistant Medical
DX: M79.661 Pain in right lower leg (principal); R68.89 Other general symptoms and signs
CPT/HCPCS: 0241U; 93971

== ENCOUNTER 2023-06-18 15:38 | Outpatient (REF) | payer BC, SELFPAY | END 2023-06-18 15:39 | disposition home or self-care (01) | LOC: HO.LAB 15:38 | PROVIDERS: Visit Provider Physician Assistant Medical | DX: Z13.89 Encounter for screening for other disorder (principal) ==

== ENCOUNTER 2024-07-30 15:42 | Outpatient (AMB) | payer OTHER, MEDICAID, SELFPAY ==
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
[2024-07-30 15:54] VITALS: BP 120/70; PULSE 105; RESP 16; TEMP 36.6; O2SAT 98; BMI 37.7
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
== END 2024-07-30 16:27 | disposition home or self-care (01) ==
LOC: HO.HMCFM 15:43
PROVIDERS: PCP Family Medicine; Visit Provider Family Medicine
DX: Z00.00 Encounter for general adult medical examination without abnormal findings (principal); E11.65 Type 2 diabetes mellitus with hyperglycemia; Z79.4 Long term (current) use of insulin; Z12.5 Encounter for screening for malignant neoplasm of prostate; Z12.11 Encounter for screening for malignant neoplasm of colon; F17.200 Nicotine dependence, unspecified, uncomplicated

== ENCOUNTER → 2024-07-30 15:42 | Outpatient (BNVA) | payer OTHER, MEDICAID, SELFPAY | PROVIDERS: PCP Family Medicine; Visit Provider Family Medicine | DX: Z00.00 Encounter for general adult medical examination without abnormal findings (principal); E11.65 Type 2 diabetes mellitus with hyperglycemia; I10 Essential (primary) hypertension; F17.210 Nicotine dependence, cigarettes, uncomplicated; Z79.4 Long term (current) use of insulin | CPT/HCPCS: 96127 ==

== ENCOUNTER 2024-08-01 07:18 | Outpatient (REF) | payer OTHER, MEDICAID, SELFPAY ==
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
[2024-08-01 07:30] LABS: MANUAL DIFF FLAG NO
[2024-08-01 07:51] LABS: Appearance Urine Clear; Color Urine Yellow; Glucose Urine UA Negative (Negative); Leukocyte Esterase Urine Negative (Negative); Nitrite Urine Negative (Negative); PH 5.5 (5.0-9.0); Urine Blood Negative (Negative); Urine Ketones Negative (Negative); Urine Protein Negative (Neg-Trace)
[2024-08-01 07:55] LABS: Basophils Absolute Auto 0.1 X10*3/uL (0.0-0.2); Basophils Percent Auto 1.2 % (0-2); Eosinophils Absolute Auto 0.3 X10*3/uL (0.0-0.4); Eosinophils Percent Auto 3.7 % (0-4); Hematocrit 40.8 % (42.0-52.0); Hemoglobin 14.1 g/dl (14.0-18.0); Imm Gran Abs Auto 0.03 X10*3/uL (0.00-0.03); Imm Gran Pct Auto 0.4 % (0.0-0.4); Lymphocytes Absolute Auto 1.6 X10*3/uL (1.2-4.9); Lymphocytes Percent Auto 18.3 % (20-40); Mean Corpuscular HGB Conc 34.6 g/dl (31.0-36.0); Mean Corpuscular Hemoglobin 29.1 pg (27.0-33.0); Mean Corpuscular Volume 84.3 fL (80.0-98.0); Mean Platelet Volume 11.1 fL (9.4-12.4); Monocytes Absolute Auto 0.7 X10*3/uL (0.1-1.2); Monocytes Percent Auto 8.2 % (2-11); Neutrophils Absolute Auto 5.8 x10*3/uL (2.0-8.3); Neutrophils Percent Auto 68.2 % (45-73); Platelet Count 238 X10*3/uL (160-400); Red Blood Count 4.84 X10*6/uL (4.60-5.80); Red Cell Distribution Width 13.2 % (11.0-16.0); White Blood Count 8.5 X10*3/uL (4.8-10.8)
[2024-08-01 08:24] LABS: Creatinine Urine 110.46 mg/dL; Microalbum/Creatinine Ratio Ur 5.4 ug/mg cr (<30)
[2024-08-01 08:39] LABS: Alanine Aminotransferase 35 U/L (0-40); Albumin Level 4.2 g/dL (3.5-5.0); Alkaline Phosphatase 62 U/L (39-117); Anion Gap 11 (12-20); Aspartate Amino Transferase 24 U/L (5-37); Bilirubin Total 0.2 mg/dL (0.0-1.0); Blood Urea Nitrogen 17 mg/dL (9-16); Calcium 8.5 mg/dL (8.4-10.2); Carbon Dioxide 24 mmol/L (22-29); Chloride 108 mmol/L (96-108); Cholesterol 144 mg/dL (<200); Estimated Glomerular Filt Rate > 60; Glucose Fasting 148 mg/dL (60-99); HDL Cholesterol 18 mg/dL (>40); Potassium 3.9 mmol/L (3.3-5.1); Sodium 139 mmol/L (135-145); Total Protein 6.8 g/dL (6.5-8.0); Triglycerides 508 mg/dL (<150)
[2024-08-01 08:47] LABS: Prostate Specific Antigen Scr 0.46 ng/mL (<0.05-4.0)
[2024-08-01 08:55] LABS: TSH reflex Free T4 1.12 uIU/mL (0.32-4.0)
== END 2024-08-01 07:19 | disposition home or self-care (01) ==
LOC: HO.LAB 07:18
PROVIDERS: PCP Family Medicine; Visit Provider Family Medicine
DX: Z00.00 Encounter for general adult medical examination without abnormal findings (principal); Z12.5 Encounter for screening for malignant neoplasm of prostate; I10 Essential (primary) hypertension
CPT/HCPCS: 36415; 80053; 80061; 81003; 82043; 82570; 84153; 84443; 85025

== ENCOUNTER 2024-08-04 07:53 | Emergency (ER) | payer OTHER, MEDICAID, SELFPAY ==
[2024-08-04] VITALS (8 sets, daily range): BP systolic 103–127; BP diastolic 46–85; PULSE 95–112; RESP 16–24; TEMP 36.6–36.9; O2SAT 94–95; BMI 37.0
--- NOTE | ~2024-08-04 | XR_ITS ---
EXAMINATION: XR CHEST CLINICAL INFORMATION: Shortness of breath, allergic reaction, R/ COMPARISON: 1223. TECHNIQUE: Frontal view of the chest was obtained. FINDINGS: The cardiac, hilar, and mediastinal contours are normal. The lungs are clear bilaterally. No pneumothorax or effusion. No focal osseous or soft tissue abnormality. XR/XR chest 1V IMPRESSION: No active pulmonary disease. Electronically signed by: Poli Joel MD 08/04/2024 10:06 AM EDT
--- NOTE | 2024-08-04 08:22 | PC.NURSE ---
Pt brought to bedside via WC, slightly tachipnic c/o diff breathing. LS CTA. no oropharnegeal swelling noted. rash/hives moderate on arms, trunk, groin. took benadryl 50mg last night 8p. unk allergen. has epipen at home but didn't use it.
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
--- NOTE | 2024-08-04 09:01 | ECG_ITS ---
Test Reason : SOB Blood Pressure : */* mmHG Vent. Rate : 104 BPM Atrial Rate : 104 BPM P-R Int : 138 ms QRS Dur : 92 ms QT Int : 360 ms P-R-T Axes : 49 72 28 degrees QTcB Int : 473 ms Sinus tachycardia Otherwise normal ECG When compared with ECG of 01-Feb-2023 11:58, No significant change was found Referred By: Shaquille Wolff Electronically Signed By: VANDANA CHAVARRIA MD
[2024-08-04 09:32] LABS: MANUAL DIFF FLAG NO
[2024-08-04 09:34] LABS: Basophils Percent Auto 0.2 % (0-2); Eosinophils Absolute Auto 0.1 X10*3/uL (0.0-0.4); Eosinophils Percent Auto 0.6 % (0-4); Hematocrit 44.1 % (42.0-52.0); Hemoglobin 15.4 g/dl (14.0-18.0); Imm Gran Abs Auto 0.05 X10*3/uL (0.00-0.03); Imm Gran Pct Auto 0.4 % (0.0-0.4); Lymphocytes Absolute Auto 1.6 X10*3/uL (1.2-4.9); Lymphocytes Percent Auto 12.7 % (20-40); Mean Corpuscular HGB Conc 34.9 g/dl (31.0-36.0); Mean Corpuscular Hemoglobin 29.4 pg (27.0-33.0); Mean Corpuscular Volume 84.3 fL (80.0-98.0); Monocytes Absolute Auto 0.8 X10*3/uL (0.1-1.2); Monocytes Percent Auto 6.7 % (2-11); Neutrophils Absolute Auto 9.8 x10*3/uL (2.0-8.3); Neutrophils Percent Auto 79.4 % (45-73); Platelet Count 196 X10*3/uL (160-400); Red Blood Count 5.23 X10*6/uL (4.60-5.80); Red Cell Distribution Width 13.2 % (11.0-16.0); White Blood Count 12.3 X10*3/uL (4.8-10.8)
[2024-08-04] MEDS: ondansetron HCL 4 MG/2 ML VIAL IVPUSH (09:45)
[2024-08-04] MEDS: diphenhydrAMINE HCL 50 MG/ML VIAL IVPUSH ×2 (09:45→16:00)
--- NOTE | 2024-08-04 09:47 | PC.NURSE ---
following solumedrol IV pt becausea nauseated, vomited, HR elevated to 140's. became red. episode passed. aware. Epi IM held.
[2024-08-04 09:49] LABS: Alanine Aminotransferase 28 U/L (0-40); Albumin Level 4.2 g/dL (3.5-5.0); Alkaline Phosphatase 62 U/L (39-117); Anion Gap 11 (12-20); Aspartate Amino Transferase 24 U/L (5-37); Bilirubin Total 0.4 mg/dL (0.0-1.0); Blood Urea Nitrogen 17 mg/dL (9-16); Calcium 8.5 mg/dL (8.4-10.2); Carbon Dioxide 19 mmol/L (22-29); Chloride 108 mmol/L (96-108); Creatinine Clr Calc Pharmacy 108.5; Estimated Glomerular Filt Rate > 60; Glucose Random 132 mg/dL (60-115); Lipase 16 U/L (8-78); Potassium 4.1 mmol/L (3.3-5.1); Sodium 134 mmol/L (135-145); Total Protein 6.8 g/dL (6.5-8.0)
[2024-08-04 09:54] LABS: B Type Natriuretic Peptide < 10 pg/mL (<100)
[2024-08-04 09:57] LABS: Troponin-I High Sensitivity < 2.7 ng/L (<3.5-35.0)
[2024-08-04] MEDS: EPINEPHrine 1 MG/ML VIAL 0.3 MG IM (10:17)
--- NOTE | 2024-08-04 15:50 | PC.NURSE ---
rash remains present but not itchy. pt denies SOB. Has been sleeping mostly.
--- NOTE | 2024-08-04 16:00 | PC.NURSE ---
rash in new places and remains itchy. more benadryl b/f discharge.
== END 2024-08-04 16:11 | disposition home or self-care (01) ==
PROVIDERS: Emergency Provider Emergency Medicine Emergency Medical Services; PCP Family Medicine
DX: R07.89 Other chest pain (principal); R06.02 Shortness of breath; R00.0 Tachycardia, unspecified; Z79.899 Other long term (current) drug therapy
CPT/HCPCS: 36415; 71045; 80053; 83690; 83735; 83880; 84484; 85025; 93005; 96372; 96374; 96375; 96376; 99284; 99285; J0171; J1200; J2405; J2919

== ENCOUNTER → 2024-08-04 09:01 | Outpatient (BNV) | payer OTHER, MEDICAID, SELFPAY | PROVIDERS: Emergency Provider Emergency Medicine Emergency Medical Services; PCP Family Medicine; Visit Provider Internal Medicine Cardiovascular Disease | DX: R00.0 Tachycardia, unspecified (principal) | CPT/HCPCS: 93010 ==

== ENCOUNTER → 2024-08-04 09:02 | Outpatient (BNV) | payer OTHER, MEDICAID, SELFPAY | PROVIDERS: Emergency Provider Emergency Medicine Emergency Medical Services; PCP Family Medicine; Visit Provider Radiology Diagnostic Radiology | DX: R06.02 Shortness of breath (principal) | CPT/HCPCS: 71045 ==

== ENCOUNTER 2024-08-05 16:06 | Outpatient (AMB) | payer OTHER, SELFPAY ==
[2024-08-05 16:08] VITALS: BP 128/68; PULSE 105; TEMP 36.6; O2SAT 95; BMI 35.2
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
== END 2024-08-05 16:42 | disposition home or self-care (01) ==
PROVIDERS: PCP Family Medicine; Visit Provider Physician Assistant
DX: T78.3XXA Angioneurotic edema, initial encounter (principal); T78.40XA Allergy, unspecified, initial encounter

== ENCOUNTER → 2024-08-05 16:06 | Outpatient (BNVA) | payer OTHER, MEDICARE, SELFPAY | PROVIDERS: PCP Family Medicine; Visit Provider Physician Assistant ==

== ENCOUNTER 2024-08-05 16:37 | Observation (INO) | payer OTHER, MEDICARE, SELFPAY ==
[2024-08-05] VITALS (7 sets, daily range): BP systolic 112–135; BP diastolic 63–80; PULSE 96–105; RESP 16–18; TEMP 36.3–36.7; O2SAT 93–100; BMI 35.2
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
[2024-08-05] MEDS: Famotidine/PF 20 MG/2 ML VIAL IVPUSH ×2 (17:31→22:51)
[2024-08-05] MEDS: diphenhydrAMINE HCL 50 MG/ML VIAL IVPUSH (17:31)
--- NOTE | 2024-08-05 17:43 | ECG_ITS ---
Test Reason : TACHYCARDIA Blood Pressure : */* mmHG Vent. Rate : 99 BPM Atrial Rate : 99 BPM P-R Int : 180 ms QRS Dur : 100 ms QT Int : 378 ms P-R-T Axes : 48 67 34 degrees QTcB Int : 485 ms Normal sinus rhythm Prolonged QT Abnormal ECG When compared with ECG of 04-Aug-2024 09:33, No significant change was found Referred By: Veronica Anguiano Electronically Signed By: VANDANA CHAVARRIA MD
[2024-08-05] MEDS: Lactated Ringers 1,000 ML 999 ML IV (17:46)
[2024-08-05 17:52] LABS: MANUAL DIFF FLAG NO
[2024-08-05 18:07] LABS: Anion Gap 12 (12-20); Blood Urea Nitrogen 30 mg/dL (9-16); Calcium 8.2 mg/dL (8.4-10.2); Carbon Dioxide 20 mmol/L (22-29); Chloride 110 mmol/L (96-108); Creatinine Clr Calc Pharmacy 103.3; Estimated Glomerular Filt Rate > 60; Glucose Random 167 mg/dL (60-115); Potassium 4.2 mmol/L (3.3-5.1); Sodium 138 mmol/L (135-145)
[2024-08-05 18:08] LABS: Basophils Percent Auto 0.1 % (0-2); Eosinophils Percent Auto 0.1 % (0-4); Hematocrit 38.7 % (42.0-52.0); Hemoglobin 13.2 g/dl (14.0-18.0); Imm Gran Abs Auto 0.13 X10*3/uL (0.00-0.03); Imm Gran Pct Auto 0.7 % (0.0-0.4); Lymphocytes Absolute Auto 1.2 X10*3/uL (1.2-4.9); Lymphocytes Percent Auto 6.4 % (20-40); Mean Corpuscular HGB Conc 34.1 g/dl (31.0-36.0); Mean Corpuscular Hemoglobin 29.3 pg (27.0-33.0); Mean Corpuscular Volume 85.8 fL (80.0-98.0); Mean Platelet Volume 11.3 fL (9.4-12.4); Monocytes Percent Auto 5.1 % (2-11); Neutrophils Absolute Auto 16.9 x10*3/uL (2.0-8.3); Neutrophils Percent Auto 87.6 % (45-73); Platelet Count 254 X10*3/uL (160-400); Red Blood Count 4.51 X10*6/uL (4.60-5.80); Red Cell Distribution Width 13.3 % (11.0-16.0); White Blood Count 19.2 X10*3/uL (4.8-10.8)
[2024-08-05 18:17] LABS: Troponin-I High Sensitivity < 2.7 ng/L (<3.5-35.0)
[2024-08-05] MEDS: diphenhydrAMINE HCL 50 MG/ML VIAL 25 MG IVPUSH (21:08)
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
--- NOTE | 2024-08-05 22:13 | PHA.MEDREC ---
Pharmacy Consult ? Medication Reconciliation Pharmacy has completed the medication reconciliation. Spoke to patient to confirm med list. Patient states he is no longer taking Varenicline starting pack due to an allergic reaction.
[2024-08-05] MEDS: Loratadine 10 MG TABLET PO (22:56)
[2024-08-05] MEDS: Prazosin HCL 1 MG CAPSULE PO (23:29)
[2024-08-05] MEDS: 0.9 % Sodium Chloride Flush 3 ML SYRINGE IVFLUSH (23:36)
--- NOTE | 2024-08-05 23:42 | PC.NURSE ---
This RN assumed care of patient at 23:00. Patient alert and oriented x4, VSS. NSR on child monitor. Rash to b/l arms and torso unchanged, airway is patient. Patient reports mild headache, this RN offered patient PRN Tylenol, patient refused reporting that he would like to take a nap first. Patient medicated per APR. Patient currently resting on stretcher bed, call ramirez in reach, plan of care ongoing.
[2024-08-06] VITALS (11 sets, daily range): BP systolic 108–121; BP diastolic 56–80; PULSE 91–105; RESP 14–20; TEMP 2.8–37.1; O2SAT 94–96
--- NOTE | 2024-08-06 04:48 | PC.NURSE ---
Patient ambulated to restroom and back to his room independently with steady gait noted.
[2024-08-06 04:54] LABS: Basophils Percent Auto 0.1 % (0-2); Hemoglobin 13.2 g/dl (14.0-18.0); Imm Gran Pct Auto 0.7 % (0.0-0.4); Lymphocytes Percent Auto 6.6 % (20-40); MANUAL DIFF FLAG SCAN; Mean Corpuscular HGB Conc 33.8 g/dl (31.0-36.0); Mean Corpuscular Hemoglobin 29.3 pg (27.0-33.0); Mean Corpuscular Volume 86.5 fL (80.0-98.0); Mean Platelet Volume 11.1 fL (9.4-12.4); Monocytes Absolute Auto 0.2 X10*3/uL (0.1-1.2); Monocytes Percent Auto 1.5 % (2-11); Neutrophils Absolute Auto 13.7 x10*3/uL (2.0-8.3); Neutrophils Percent Auto 91.1 % (45-73); Platelet Count 240 X10*3/uL (160-400); Red Blood Count 4.51 X10*6/uL (4.60-5.80); Red Cell Distribution Width 13.3 % (11.0-16.0); SCAN SMEAR FLAG 1; White Blood Count 15.1 X10*3/uL (4.8-10.8)
[2024-08-06 05:09] LABS: Anion Gap 12 (12-20); Blood Urea Nitrogen 24 mg/dL (9-16); Calcium 8.3 mg/dL (8.4-10.2); Carbon Dioxide 21 mmol/L (22-29); Chloride 109 mmol/L (96-108); Creatinine Clr Calc Pharmacy 125.3; Estimated Glomerular Filt Rate > 60; Glucose Random 315 mg/dL (60-115); Potassium 4.4 mmol/L (3.3-5.1); Sodium 138 mmol/L (135-145)
[2024-08-06 05:14] LABS: SLIDE REVIEW VERIFIED
[2024-08-06 07:39] LABS: Glucose, Whole Blood 266 mg/dL (60-115)
[2024-08-06] MEDS: Insulin Lispro 100 UNIT/ML 3 ML VIAL SUBCUT ×4 (07:52→21:24)
[2024-08-06] MEDS: Famotidine 20 MG TABLET PO (08:20)
[2024-08-06] MEDS: Aspirin 81 MG TAB.CHEW PO (08:20)
[2024-08-06] MEDS: Loratadine 10 MG TABLET PO (08:20)
[2024-08-06] MEDS: Enoxaparin Sodium 40 MG/0.4 ML SYRINGE SUBCUT (08:21)
[2024-08-06] MEDS: methylPREDNISolone Sod Succ 40 MG/ML VIAL IVPUSH ×2 (08:21→20:51)
[2024-08-06] MEDS: 0.9 % Sodium Chloride Flush 3 ML SYRINGE IVFLUSH ×2 (08:24→16:04)
[2024-08-06] MEDS: Prazosin HCL 1 MG CAPSULE PO ×2 (08:34→21:25)
--- NOTE | 2024-08-06 09:25 | MHC.CM.PN ---
CM met with Patient art bedside, in the ED and addressed AMANDA with him, providing Patient with the original and a copy has been placed on the chart.Patient lives in a house with his /HCP/Bridget who will transport to home at time of dc. Home/self care is the Patient's goal and CM has initiated and will follow for dc planning. PCP is Dr. Rene Baker.
--- NOTE | 2024-08-06 09:30 | PC.NURSE ---
Assumed care of pt at 645 am. Pt A&O X4 VSS. Itching arms and states my rash has started coming back at 728 am and provider notified. New orders received and administered. Pt without any angiodedema at that time and rash had not spread past bilat arms. Pt elise PO well and has no other complaints.
--- NOTE | 2024-08-06 10:43 | PC.NURSE ---
Pt states rash has not improved. Looks same as before on inspection.Pt with no angioedema. VSS NAD No other complaints
[2024-08-06 13:03] LABS: Glucose, Whole Blood 230 mg/dL (60-115)
--- NOTE | 2024-08-06 14:23 | PC.NURSE ---
Pt ambulating to and from BR without assist- tolerating PO well. VSS, NAD no complaints.
[2024-08-06] MEDS: diphenhydrAMINE HCL 50 MG/ML VIAL 25 MG IVPUSH ×2 (16:21→21:25)
[2024-08-06 16:57] LABS: Glucose, Whole Blood 221 mg/dL (60-115)
--- NOTE | 2024-08-06 17:27 | HO.PM.IMPN ---
Subjective Subjective Date of Service: 08/07/24 Interval History: body rash-specially in the arms, has itching Review of Systems No facial swelling or shortness of breaths But getting recurrent rash since early this week Review of Systems: Yes all other systems are reviewed and are negative Physical Exam Vital Signs: Vital Signs: Last Vital Signs Temp 97.5 F 08/06/24 16:51 Pulse 101 H 08/06/24 16:51 Resp 15 08/06/24 16:51 BP 108/56 L 08/06/24 16:51 Pulse Ox 96 08/06/24 16:51 O2 Del Method Room Air 08/06/24 16:51 BMI result Body Mass Index 35.2 Appearance: Alert.? Oriented X3.? . cvs: rrr, [id number]. res: clear to auscultation ,no rhonchii or wheezing abd: no rebound or guarding ,nt, bs present. ext pulses present , no cyanosis . neuro: axo3 , nonfocal. Objective Data Active Medications Acetaminophen (Acetaminophen 325 Mg Tablet) 650 mg PO Q6H PRN PRN Reason: Pain, Mild 1-3,fever,headache Albuterol/Ipratropium (Albuterol/Iprat 2.5/0.5mg 3 Ml Ampul.Neb) 3 ml INHALE RQ4H PRN PRN Reason: Shortness of Breath/Wheezing Aspirin (Aspirin 81 Mg Tab.Chew) 81 mg PO DAILY [facility] Last Admin: 08/06/24 08:20 Dose: 81 mg Documented By: ADELITA Calcium Carbonate (Calcium Carbonate 750 Mg Tab.Chew) 750 mg PO Q4H PRN PRN Reason: Heartburn Dextrose (Dextrose 50 % 25 Gm/50 Ml Syringe) 25 gm IVPUSH Q15M PRN; Protocol PRN Reason: per Hypoglycemia Standing Ord. Diphenhydramine HCl (Diphenhydramine Hcl 50 Mg/Ml Vial) 25 mg IVPUSH Q4H PRN PRN Reason: Rash Last Admin: 08/06/24 16:21 Dose: 25 mg Documented By: CHANDNI Enoxaparin Sodium (Enoxaparin Sodium 40 Mg/0.4 Ml Syringe) 40 mg SUBCUT Q24H [facility] Last Admin: 08/06/24 08:21 Dose: 40 mg Documented By: ADELITA Famotidine (Famotidine 20 Mg Tablet) 20 mg PO DAILY [facility] Stop: 08/11/24 08:59 Last Admin: 08/06/24 08:20 Dose: 20 mg Documented By: ADELITA Glucose (Glucose Gel 15 Gm Gel..Gram.) 15 gm PO Q15M PRN; Protocol PRN Reason: per Hypoglycemia Standing Ord. Insulin Human Lispro (Insulin Lispro 100 Unit/Ml 3 Ml Vial) 0 unit SUBCUT QIDACHS [facility]; Protocol Last Admin: 08/06/24 17:25 Dose: 4 unit Documented By: CHANDNI Comments: poc 221 Loratadine (Loratadine 10 Mg Tablet) 10 mg PO DAILY [facility] Last Admin: 08/06/24 08:20 Dose: 10 mg Documented By: ADELITA Magnesium Hydroxide (Milk Of Magnesia 30 Ml Oral.Susp) 30 ml PO DAILY PRN PRN Reason: Constipation Melatonin (Melatonin 3 Mg Tablet) 6 mg PO BEDTIME PRN PRN Reason: Insomnia Methylprednisolone Sodium Succinate (Methylprednisolone Sod Succ 40 Mg/Ml Vial) 40 mg IVPUSH Q12H [facility] Last Admin: 08/06/24 08:21 Dose: 40 mg Documented By: ADELITA Ondansetron HCl (Ondansetron Hcl 4 Mg/2 Ml Vial) 4 mg IVPUSH Q8H PRN PRN Reason: Nausea and Vomiting Polyethylene Glycol (Polyethylene Glycol 3350 17 Gm Powd.Pack) 17 gm PO DAILY PRN PRN Reason: Constipation Prazosin HCl (Prazosin Hcl 1 Mg Capsule) 1 mg PO BID [facility]; Protocol Last Admin: 08/06/24 08:34 Dose: 1 mg Documented By: ADELITA Senna (Sennosides 8.6 Mg Tablet) 17.2 mg PO BEDTIME [facility] Sodium Chloride (0.9 % Sodium Chloride Flush 3 Ml Syringe) 3 ml IVFLUSH QSHIFT [facility] Last Admin: 08/06/24 16:04 Dose: 3 ml Documented By: CHANDNI Trazodone HCl (Trazodone Hcl 100 Mg Tablet) 100 mg PO BEDTIME PRN PRN Reason: sleep Labs 08/06/24 04:25 08/06/24 04:25 Labs: Laboratory Results - last 24 hr 08/05/24 08/06/24 08/06/24 17:48 04:25 07:34 MCV 85.8 86.5 MCH 29.3 29.3 MCHC 34.1 33.8 RDW 13.3 13.3 Plt Count 254 D 240 MPV 11.3 11.1 Immature Gran % (Auto) 0.7 H 0.7 H Neut % (Auto) 87.6 H 91.1 H Lymph % (Auto) 6.4 L 6.6 L Mccracken % (Auto) 5.1 1.5 L Eos % (Auto) 0.1 0.0 Baso % (Auto) 0.1 0.1 Lymph # (Auto) 1.2 1.0 L Mccracken # (Auto) 1.0 0.2 Eos # (Auto) 0.0 0.0 Baso # (Auto) 0.0 0.0 Abs Immat Gran (auto) 0.13 H 0.10 H Absolute Neuts (auto) 16.9 H 13.7 H Absolute Nucleated RBC 0.000 0.000 Nucleated RBC % (auto) 0.0 0.0 Smear Tech's Comments VERIFIED Anion Gap 12 12 Estim Creat Clear Calc 103.3 125.3 Estimated GFR > 60 > 60 POC Glucose 266 H Random Glucose 167 H 315 H Calcium 8.2 L 8.3 L Troponin I High Sens < 2.7 08/06/24 08/06/24 12:59 16:53 MCV MCH MCHC RDW Plt Count MPV Immature Gran % (Auto) Neut % (Auto) Lymph % (Auto) Mccracken % (Auto) Eos % (Auto) Baso % (Auto) Lymph # (Auto) Mccracken # (Auto) Eos # (Auto) Baso # (Auto) Abs Immat Gran (auto) Absolute Neuts (auto) Absolute Nucleated RBC Nucleated RBC % (auto) Smear Tech's Comments Anion Gap Estim Creat Clear Calc Estimated GFR POC Glucose 230 H 221 H Random Glucose Calcium Troponin I High Sens Assessment and Plan (1) Allergic reaction: Status: Acute Assessment and Plan: 53-year-old male with past medical history bee allergy requires epinephrine, [id number] diabetes type 2, nicotine dependence, OA, HLD, GERD, anxiety, schizoaffective disorder, bipolar disorder obesity, AFib status post ablation not currently on anticoagulation, 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 Patient is feeling uncomfortable returning home as he feels he will have to return again. It is noted that patient's angioedema has completely resolved. Patient has no stridor. Mild expiratory wheeze present. Noted hives on scalp and excoriations from itching. Patient is on room air. Allergic reaction likely source Chantrix Rash is somewhat improving but then come back says sob imrpoving Plan: Continue Solu-Medrol, loratadine, famotidine, Benadryl Continue to monitor. ID evaluation Discussed with the patient to avoid Chantix in future. NIDDM II -Sliding scale insulin -Diabetic diet -Patient has decided not to continue with metformin due to GI side effects including diarrhea.(this also occurred when patient was on metformin prior for 2 years.) -patient not on current treatment for neuropathy. Tobacco dependence -Patient has no plans to resume Chantix -Patient is not interested in nicotine replacement therapy -Patient currently states he would rather smoked and go through this again. His 100 and 60-year-old grandmother smoked 3 packs a day and is patient's rationale for not stopping smoking. -Education provided on the risk versus benefit of smoking GERD -Pepcid has been started for above allergic reaction -Patient may benefit from continuation and will discuss with his primary care physician PTSD/history of anxiet -Will continue prazosin DVT prophylaxis: Lovenox. PPI prophylaxis: Pepcid. ongoing need: allergic reaction -need IV steroids, extensive rash/intractable itching not improving Quality Stroke Does the patient have a stroke diagnosis?: No Reason for No Anti-thrombotic by Day Two: N/A - Med Ordered VTE Prior VTE?: No VTE Risk Level:: Medical - moderate - high VTE Device Contraindication: Treatment Not Indicated VTE Drug Contraindication: N/A - Med Ordered
--- NOTE | 2024-08-06 19:48 | MHC.EDTECH ---
This pct assumed care of Patient at 1845 ,Vital taken ,Patient was given dinner ,Patient at bedside ,no apparent distress noted ,Plan of care continue .Call ramirez within Pt reach .
--- NOTE | 2024-08-06 20:55 | PC.NURSE ---
Pt a&ox4, no signs of distress Pts at bedside Pt medicated per mar Pt denies pain but reports pruritus Plan of care ongoing.
[2024-08-06 21:03] LABS: Glucose, Whole Blood 198 mg/dL (60-115)
--- NOTE | 2024-08-06 21:04 | MHC.EDTECH ---
2100 blood sugar check ,PERICO Leal aware of result .
[2024-08-06] MEDS: Sennosides 8.6 MG TABLET 17.2 MG PO (21:25)
--- NOTE | 2024-08-06 21:29 | PC.NURSE ---
Pt medicated per [facility] Plan of care ongoing.
--- NOTE | 2024-08-06 22:01 | MHC.EDTECH ---
2200 rounding done ,vitals taken ,patient awake watching television ,no apparent distress noted ,Plan of care continue .
[2024-08-07] VITALS (7 sets, daily range): BP systolic 114–133; BP diastolic 59–73; PULSE 92–104; RESP 15–18; TEMP 36.3–36.8; O2SAT 92–96; BMI 35.3
--- NOTE | 2024-08-07 03:21 | PC.NURSE ---
Pt ambulates to restroom and back into room with steady gait. Plan of care ongoing.
--- NOTE | 2024-08-07 05:13 | PC.NURSE ---
this rn assumed care of pt, pt resting in stretcher, no acute distress noted, respirations even and unlabored.
[2024-08-07 07:36] LABS: Glucose, Whole Blood 221 mg/dL (60-115)
[2024-08-07] MEDS: Insulin Lispro 100 UNIT/ML 3 ML VIAL SUBCUT ×4 (08:00→20:54)
[2024-08-07] MEDS: diphenhydrAMINE HCL 50 MG/ML VIAL 25 MG IVPUSH ×3 (08:08→20:54)
[2024-08-07] MEDS: 0.9 % Sodium Chloride Flush 3 ML SYRINGE IVFLUSH ×3 (08:14→20:56)
[2024-08-07] MEDS: Loratadine 10 MG TABLET PO (09:18)
[2024-08-07] MEDS: Famotidine 20 MG TABLET PO (09:18)
[2024-08-07] MEDS: Aspirin 81 MG TAB.CHEW PO (09:18)
[2024-08-07] MEDS: methylPREDNISolone Sod Succ 40 MG/ML VIAL IVPUSH ×2 (09:18→20:54)
[2024-08-07] MEDS: Prazosin HCL 1 MG CAPSULE PO ×2 (09:18→20:55)
[2024-08-07] MEDS: Enoxaparin Sodium 40 MG/0.4 ML SYRINGE SUBCUT (09:19)
[2024-08-07 11:12] LABS: Glucose, Whole Blood 176 mg/dL (60-115)
--- NOTE | 2024-08-07 11:53 | MHC.CM.PN ---
EMR reviewed and per MD rounds, pt is not medically cleared for discharge due to management of allergic reaction, pt receiving IV steroids.
--- NOTE | 2024-08-07 15:47 | P.PNIM_ITS ---
Subjective Subjective Date of Service: 08/07/24 Interval History: allergic reaction Review of Systems still extensive rash/intractable itching Shortness of breaths seems he has but patient is hesitant-says rashes coming and going from last few days Physical Exam 2 Vital Signs: Vital Signs: Last Vital Signs Temp 98.3 F 08/07/24 12:00 Pulse 104 H 08/07/24 12:00 Resp 18 08/07/24 12:00 BP 123/68 08/07/24 12:00 Pulse Ox 94 08/07/24 12:00 O2 Del Method Room Air 08/07/24 12:00 BMI result Body Mass Index 35.3 Appearance: Alert.? Oriented X3. cvs: rrr, [id number] . res:air entry diminshed ,minimum wheezing ,few scattered rales at bases abd: no rebound or guarding ,nt, bs present. ext pulses present , no cyanosis Rash: On the upper extremities , on thoracic area as well as behind the knees neuro: axo3 , nonfocal. Objective Data Active Medications Acetaminophen (Acetaminophen 325 Mg Tablet) 650 mg PO Q6H PRN PRN Reason: Pain, Mild 1-3,fever,headache Albuterol/Ipratropium (Albuterol/Iprat 2.5/0.5mg 3 Ml Ampul.Neb) 3 ml INHALE RQ4H PRN PRN Reason: Shortness of Breath/Wheezing Aspirin (Aspirin 81 Mg Tab.Chew) 81 mg PO DAILY [facility] Last Admin: 08/07/24 09:18 Dose: 81 mg Documented By: RIYA Calcium Carbonate (Calcium Carbonate 750 Mg Tab.Chew) 750 mg PO Q4H PRN PRN Reason: Heartburn Dextrose (Dextrose 50 % 25 Gm/50 Ml Syringe) 25 gm IVPUSH Q15M PRN; Protocol PRN Reason: per Hypoglycemia Standing Ord. Diphenhydramine HCl (Diphenhydramine Hcl 50 Mg/Ml Vial) 25 mg IVPUSH Q4H PRN PRN Reason: Rash Last Admin: 08/07/24 08:08 Dose: 25 mg Documented By: KENDRICK Enoxaparin Sodium (Enoxaparin Sodium 40 Mg/0.4 Ml Syringe) 40 mg SUBCUT Q24H [facility] Last Admin: 08/07/24 09:19 Dose: 40 mg Documented By: RIYA Famotidine (Famotidine 20 Mg Tablet) 20 mg PO DAILY [facility] Stop: 08/11/24 08:59 Last Admin: 08/07/24 09:18 Dose: 20 mg Documented By: RIYA Glucose (Glucose Gel 15 Gm Gel..Gram.) 15 gm PO Q15M PRN; Protocol PRN Reason: per Hypoglycemia Standing Ord. Insulin Human Lispro (Insulin Lispro 100 Unit/Ml 3 Ml Vial) 0 unit SUBCUT QIDACHS [facility]; Protocol Last Admin: 08/07/24 12:23 Dose: 2 unit Documented By: LISA Loratadine (Loratadine 10 Mg Tablet) 10 mg PO DAILY [facility] Last Admin: 08/07/24 09:18 Dose: 10 mg Documented By: RIYA Magnesium Hydroxide (Milk Of Magnesia 30 Ml Oral.Susp) 30 ml PO DAILY PRN PRN Reason: Constipation Melatonin (Melatonin 3 Mg Tablet) 6 mg PO BEDTIME PRN PRN Reason: Insomnia Methylprednisolone Sodium Succinate (Methylprednisolone Sod Succ 40 Mg/Ml Vial) 40 mg IVPUSH Q12H [facility] Last Admin: 08/07/24 09:18 Dose: 40 mg Documented By: RIYA Ondansetron HCl (Ondansetron Hcl 4 Mg/2 Ml Vial) 4 mg IVPUSH Q8H PRN PRN Reason: Nausea and Vomiting Polyethylene Glycol (Polyethylene Glycol 3350 17 Gm Powd.Pack) 17 gm PO DAILY PRN PRN Reason: Constipation Prazosin HCl (Prazosin Hcl 1 Mg Capsule) 1 mg PO BID [facility]; Protocol Last Admin: 08/07/24 09:18 Dose: 1 mg Documented By: RIYA Senna (Sennosides 8.6 Mg Tablet) 17.2 mg PO BEDTIME [facility] Last Admin: 08/06/24 21:25 Dose: 17.2 mg Documented By: CHRISTOPHER Sodium Chloride (0.9 % Sodium Chloride Flush 3 Ml Syringe) 3 ml IVFLUSH QSHIFT [facility] Last Admin: 08/07/24 08:14 Dose: 3 ml Documented By: KENDRICK Trazodone HCl (Trazodone Hcl 100 Mg Tablet) 100 mg PO BEDTIME PRN PRN Reason: sleep Labs 08/06/24 04:25 08/06/24 04:25 Labs: Laboratory Results - last 24 hr 08/06/24 08/06/24 08/07/24 16:53 20:59 07:33 POC Glucose 221 H 198 H 221 H 08/07/24 11:08 POC Glucose 176 H Assessment and Plan (1) Allergic reaction: Status: Acute Assessment and Plan: 53-year-old male with past medical history bee allergy requires epinephrine, [id number] diabetes type 2, nicotine dependence, OA, HLD, GERD, anxiety, schizoaffective disorder, bipolar disorder obesity, AFib status post ablation not currently on anticoagulation, 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 Patient is feeling uncomfortable returning home as he feels he will have to return again. It is noted that patient's angioedema has completely resolved. Patient has no stridor. Mild expiratory wheeze present. Noted hives on scalp and excoriations from itching. Patient is on room air. Allergic reaction likely source Chantrix Rash is somewhat improving but then come back says sob imrpoving Plan: Continue Solu-Medrol, loratadine, famotidine, Benadryl Continue to monitor. ID evaluation Discussed with the patient to avoid Chantix in future. NIDDM II -Sliding scale insulin -Diabetic diet -Patient has decided not to continue with metformin due to GI side effects including diarrhea.(this also occurred when patient was on metformin prior for 2 years.) -patient not on current treatment for neuropathy. Tobacco dependence -Patient has no plans to resume Chantix -Patient is not interested in nicotine replacement therapy -Patient currently states he would rather smoked and go through this again. His 100 and 60-year-old grandmother smoked 3 packs a day and is patient's rationale for not stopping smoking. -Education provided on the risk versus benefit of smoking GERD -Pepcid has been started for above allergic reaction -Patient may benefit from continuation and will discuss with his primary care physician PTSD/history of anxiet -Will continue prazosin DVT prophylaxis: Lovenox. PPI prophylaxis: Pepcid. ongoing need: allergic reaction -need IV steroids, extensive rash/intractable itching not improving -says that hesitant to go unless have some relief rash/itching Quality Stroke Does the patient have a stroke diagnosis?: No Reason for No Anti-thrombotic by Day Two: N/A - Med Ordered VTE Prior VTE?: No VTE Risk Level:: Medical - moderate - high VTE Device Contraindication: Treatment Not Indicated VTE Drug Contraindication: N/A - Med Ordered
[2024-08-07 15:52] LABS: Glucose, Whole Blood 232 mg/dL (60-115)
[2024-08-07 20:21] LABS: Glucose, Whole Blood 290 mg/dL (60-115)
[2024-08-07] MEDS: Sennosides 8.6 MG TABLET 17.2 MG PO (20:55)
[2024-08-08 03:46] VITALS: BP 126/58; PULSE 76; RESP 16; TEMP 35.9; O2SAT 94
[2024-08-08 04:23] VITALS: TEMP 36.4
[2024-08-08] MEDS: diphenhydrAMINE HCL 50 MG/ML VIAL 25 MG IVPUSH ×2 (06:10→10:59)
[2024-08-08 06:56] LABS: Glucose, Whole Blood 266 mg/dL (60-115)
[2024-08-08 07:02] VITALS: BP 120/57; PULSE 88; RESP 20; TEMP 36.8; O2SAT 95
[2024-08-08] MEDS: Prazosin HCL 1 MG CAPSULE PO (07:59)
[2024-08-08] MEDS: Enoxaparin Sodium 40 MG/0.4 ML SYRINGE SUBCUT (07:59)
[2024-08-08] MEDS: Loratadine 10 MG TABLET PO (07:59)
[2024-08-08] MEDS: Insulin Lispro 100 UNIT/ML 3 ML VIAL SUBCUT ×2 (07:59→11:00)
[2024-08-08] MEDS: Famotidine 20 MG TABLET PO (07:59)
[2024-08-08] MEDS: Aspirin 81 MG TAB.CHEW PO (07:59)
[2024-08-08] MEDS: 0.9 % Sodium Chloride Flush 3 ML SYRINGE IVFLUSH (08:04)
[2024-08-08] MEDS: methylPREDNISolone Sod Succ 40 MG/ML VIAL IVPUSH (08:04)
[2024-08-08 10:54] LABS: Glucose, Whole Blood 368 mg/dL (60-115)
[2024-08-08 11:02] VITALS: BP 133/76; PULSE 93; RESP 18; TEMP 36.2; O2SAT 95
--- NOTE | 2024-08-08 14:12 | PM.DS ---
DS: Providers Provider Date of Service: 08/08/24 Date of admission: 08/05/24 21:20 Date of discharge: 08/08/24 Primary care physician: Unknown Physician Consults: 08/06/24 09:20 Consult to Infectious Diseases Routine Consulting Provider: [facility] Reason for consultation: Rash - unclear etiology Has provider been notified: No 08/07/24 09:37 Consult to Wound Care Routine Reason for consultation: rash throughout body Attending physician on discharge: Ariadna Alcantara Discharging clinician: Ariadna Alcantara DS: Diagnosis Discharge Diagnosis (1) Allergic reaction: Status: Acute DS: Summary Hospital Course Hospital Course: HPI:53-year-old male with past medical history bee allergy requires epinephrine, [id number]-[id number] diabetes type 2, nicotine dependence, OA, HLD, GERD, anxiety, schizoaffective disorder, bipolar disorder obesity, AFib status post ablation not currently on anticoagulation, toe amputation secondary to diabetes, neuropathy, hand/leg/ankle fractures no current hardware presents to ED with complaints of itching, swollen lips and hives on scalp and body. Pt was seen in ED yesterday for chest pain, shortness of breath, pruritic rash, lightheadedness and dizziness The potential source was CHANTRIX, which patient has started this past Saturday for tobacco cessation. Patient did receive Solu-Medrol 125 mg IV, Benadryl 50 mg IV x2 and epinephrine 0.3 mg IM during his ED visit yesterday, 08/04/2024. Patient was then observed for 4 hours where the rash improved but the itching continued. It was stated that his chest pain and shortness of breath at a originally had resolved. Patient was discharged home on prednisone 60 mg daily for 5 days. Patient also was advised to start Pepcid 20 mg once a day for 5 days and Benadryl 50 mg 4 to 6 times a day as needed for rash and itch. Patient returns back to the ED today with complaints of lip swelling and itching. Patient is not having any chest pain, shortness of breath at rest or with exertion or headache. Patient denies any dizziness, nausea or vomiting. Patient received IV Benadryl and methylprednisolone 125 mg IV x2. Patient overall is feeling better. Adding Claritin 10 mg p.o. x1 and pepcid. Patient also notified this consumer loan underwriter today that he did resume metformin this past Saturday after seeing his primary care physician for a physical exam this past Saturday. Patient has been on metformin in the past and used the medication for approximately 2 years. Patient did develop GI symptoms including diarrhea both then and now and patient's plan is to stopped the metformin permanently. Patient will discuss this with his primary care physician with his next visit upcoming in the next 2 weeks. Patient has no intention of resuming Chantix. There was a question if patient needed to be admitted under observation. Patient is seen and examined and noted to be wheezy at the base with continued hives on scalp and itching. Angioedema has resolved. Patient can protect his airway. Patient anxious about returning home and having to come back again. Plan is to admit patient under observation with likely discharge in the morning. Will continue to monitor patient on telemetry overnight. Patient is deferring nicotine replacement therapy at this time. Patient's vital signs are stable and currently on room air. Patient has not required oxygen this visit. Hospital course: 53-year-old male with past medical history bee allergy requires epinephrine, [id number]-wsuctmxiq diabetes type 2, nicotine dependence, OA, HLD, GERD, anxiety, schizoaffective disorder, bipolar disorder obesity, AFib status post ablation not currently on anticoagulation, 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 Patient is feeling uncomfortable returning home as he feels he will have to return again. It is noted that patient's angioedema has completely resolved. Patient has no stridor. Mild expiratory wheeze present. Noted hives on scalp and excoriations from itching. Patient is on room air. Allergic reaction likely source Chantrix:Rash is somewhat improving but then come back, no sob or facial swelling -started on Solu-Medrol, loratadine, famotidine, Benadryl-patient rash and itching is improving. Patient will be going home with o. steroids, Benadryl, famotidine and loratadine. plan: Metformin adjusted to 500 mg daily due to mild hyperglycemia Allergic reaction likely source Chantrix: Patient was given IV steroids , Benadryl, famotidine, loratadine-patient rash and itching is improving. Patient will be going home with p.o. steroids, Benadryl, famotidine and loratadine. Patient is to follow-up outpatient with PCP, consider outpatient, consider out patiently dermatology evaluation. If further worsening of symptoms or shortness of breath or new complaints go to the nearest emergency room. Above management discussed with the patient detail length he understand and in agreement with the above plan, time spent 40 minute. All question answered, staff was present during conversation Time Attestation Total time managing care of this patient today: 40 mintues. Discharge Coordination Time (in mins): 40min Quality: Safe Use of Opioids Does Pt have an Active Cancer Diagnosis on the Problem List?: No Quality: Stroke Does the patient have a stroke diagnosis?: No Physical Exam Vital Signs: Vital Signs: Last Vital Signs Temp 97.1 F 08/08/24 11:02 Pulse 93 08/08/24 11:02 Resp 18 08/08/24 11:02 BP 133/76 08/08/24 11:02 Pulse Ox 95 08/08/24 11:02 O2 Del Method Room Air 08/08/24 11:02 BMI result Body Mass Index 35.3 Appearance: Alert.? Oriented X3. cvs: rrr, [id number] . res:air entry diminshed , no wheezing or rales abd: no rebound or guarding ,nt, bs present. ext pulses present , no cyanosis Rash: On the upper extremities , on thoracic area as well as behind the knees-all areas rash is improving significantly. neuro: axo3 , nonfocal. DS: Data Data Completed and Pending Labs on day of discharge: Laboratory Results - last 24 hr 08/07/24 08/07/24 08/08/24 15:48 20:16 06:52 POC Glucose 232 H 290 H 266 H 08/08/24 10:50 POC Glucose 368 H* Discharge Plan Discharge Anticipated Discharge Date/Time: 08/08/24 14:02 Patient Disposition: Home, Self-Care Discharge Diagnosis: allergic reaction -likely due to chantix Referrals: Physician,Unknown J [Primary Care Provider] - 1 Week Discharge Medications: New famotidine 20 mg Tablet 20 mg PO DAILY Qty: 20 0RF loratadine 10 mg Tablet 10 mg PO DAILY Qty: 20 0RF diphenhydramine HCl [Benadryl] 25 mg capsule 25 mg PO TID PRN (Reason: allergic reaction) Qty: 20 0RF Continued prednisone 20 mg tablet 60 mg PO DAILY 5 Days Qty: 15 0RF prazosin 1 mg capsule 1 mg PO BID epinephrine [EpiPen 2-Noe] 0.3 mg/0.3 mL auto-injector 0.3 mg IM Q4H PRN (Reason: anaphylaxis) 30 Days Qty: 2 2RF aspirin 81 mg tablet 81 mg PO DAILY 90 Days Qty: 90 3RF trazodone 100 mg tablet 100 mg PO BEDTIME PRN (Reason: sleep) Qty: 30 0RF Changed metformin 500 mg tablet 500 mg PO BID 90 Days Qty: 120 3RF Discharge Orders: Discharge Order (Routine); Ordered 08/08/24 Ordered By: Ariadna Alcantara Diet: Advance to usual diet Activity on Discharge: As tolerated Stand Alone Forms: Patient Portal Discharge page Print Language: Cymraes Care Plan Goals: Allergic reaction likely source Chantrix: Patient was given IV steroids , Benadryl, famotidine, loratadine-patient rash and itching is improving. Patient will be going home with p.o. steroids, Benadryl, famotidine and loratadine. Patient is to follow-up outpatient with PCP, consider outpatient, consider out patiently dermatology evaluation. If further worsening of symptoms or shortness of breath or new complaints go to the nearest emergency room. Health Concerns: as above. Plan of Treatment: as above. Assessment: as above.
== END 2024-08-08 15:04 | disposition home or self-care (01) ==
LOC: HO.ED 21:24 → HO.EDOVER 21:27 → HO.IMC 08-07 07:35
PROVIDERS: Nurse Practitioner Family; Admitting Provider Student in an Organized Health Care Education/Training Program; Emergency Provider Emergency Medicine; PCP Family Medicine; Visit Provider Internal Medicine
DX: T78.40XA Allergy, unspecified, initial encounter (principal); L50.0 Allergic urticaria; X58.XXXA Exposure to other specified factors, initial encounter; Y92.9 Unspecified place or not applicable; R06.2 Wheezing; E11.9 Type 2 diabetes mellitus without complications; K21.9 Gastro-esophageal reflux disease without esophagitis; E78.5 Hyperlipidemia, unspecified; R00.0 Tachycardia, unspecified; I48.91 Unspecified atrial fibrillation; F17.200 Nicotine dependence, unspecified, uncomplicated; F43.10 Post-traumatic stress disorder, unspecified; Z89.429 Acquired absence of other toe(s), unspecified side
CPT/HCPCS: 36415; 80048; 82947; 84484; 85025; 93005; 96361; 96372; 96374; 96375; 96376; 99222; 99285; J1200; J1308; J1650; J2919; J7120

== ENCOUNTER → 2024-08-05 17:43 | Outpatient (BNV) | payer OTHER, MEDICARE, SELFPAY | PROVIDERS: Admitting Provider Student in an Organized Health Care Education/Training Program; Emergency Provider Emergency Medicine; Visit Provider Internal Medicine Cardiovascular Disease | DX: R94.31 Abnormal electrocardiogram [ECG] [EKG] (principal); R00.0 Tachycardia, unspecified | CPT/HCPCS: 93010 ==

== ENCOUNTER → 2024-08-05 21:20 | Outpatient (BNV) | payer OTHER, SELFPAY | PROVIDERS: Admitting Provider Student in an Organized Health Care Education/Training Program; Emergency Provider Emergency Medicine; Visit Provider Nurse Practitioner Family | DX: T78.40XA Allergy, unspecified, initial encounter (principal) | CPT/HCPCS: 99222; 99231 ==

== ENCOUNTER 2024-08-13 15:37 | Outpatient (AMB) | payer OTHER, SELFPAY ==
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
[2024-08-13 15:51] VITALS: BP 130/82; PULSE 99; RESP 20; TEMP 36.6; O2SAT 95; BMI 35.7
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
== END 2024-08-13 16:33 | disposition home or self-care (01) ==
LOC: HO.HMCFM 15:38
PROVIDERS: PCP Family Medicine; Visit Provider Physician Assistant Medical
DX: E11.42 Type 2 diabetes mellitus with diabetic polyneuropathy (principal); Z79.4 Long term (current) use of insulin; T78.2XXA Anaphylactic shock, unspecified, initial encounter; T50.905A Adverse effect of unspecified drugs, medicaments and biological substances, initial encounter; T63.481A Toxic effect of venom of other arthropod, accidental (unintentional), initial encounter

== ENCOUNTER → 2024-08-13 15:37 | Outpatient (BNVA) | payer OTHER, MEDICARE, SELFPAY | PROVIDERS: PCP Family Medicine; Visit Provider Physician Assistant Medical ==